=== PATIENT | female | born 1985 | race Caucasian/White ===

== ENCOUNTER 2020-05-13 10:44 | Emergency (ER) | payer BC ==
[~2020-05-13] VITALS: Ht 157.5 cm; Wt 113.6 kg
[~2020-05-13 10:44] MED LIST: ADIPEX-P37.5 MG PO; CLEOCIN HCL300 MG PO; FLOVENT HFA 410.6 GM INH; FLUTICASONE PRO16 GM NASAL; HYDROCHLOROTHIA25 MG PO; HYDROCODONE-APA1 TAB PO; IBUPROFEN800 MG PO; OXYBUTYNIN CHLOR5 MG PO; PERCOCET 10/3251 TA1 PO; PHENERGAN25 M1 PO; PREDNISONE20 MG PO; PROTONIX20 MG PO; VENTOLIN HFA18 GM INH
[2020-05-13 11:06] VITALS: Ht 157.5 cm; Wt 113.6 kg
[2020-05-13] MEDS ORDERED: STEROID (11:08)
[2020-05-13] MEDS ORDERED: ZPACK (11:08)
[2020-05-13] MEDS ORDERED: LISINOPRIL10 MG PO (11:08)
[2020-05-13 11:45] LABS: CALC OSMOLALITY 273 mosm/kg (275-300); CALCIUM 8.1 mg/dL (8.5-10.1); CARBON DIOXIDE 20.9 mmol/L (21.0-32.0); CHLORIDE - SERUM 109 mmol/L (98-107); CREATININE - SERUM 0.7 mg/dL (0.6-1.3); GLUCOSE 83 mg/dL (74-106); POTASSIUM - SERUM 4.6 mmol/L (3.5-5.1); SODIUM 138 mmol/L (136-145); UREA NITROGEN 11 mg/dL (7-18); eGFR NON AFRICAN AMERICAN > 90 mL/min (90-120)
[2020-05-13 11:50] LABS: ALKALINE PHOSPHATASE 63 U/L (30-120); ALT (SGPT) 44 U/L (10-68); BILIRUBIN - TOTAL 0.59 mg/dL (0.2-1.3); PROTEIN - SERUM 6.2 g/dL (6.4-8.2)
[2020-05-13 11:57] LABS: ALBUMIN 3.4 g/dL (3.4-5.0)
[2020-05-13 13:51] LABS: BASOPHILS 0.3 % (0-2); EOSINOPHILS 1.2 % (0-7); HEMATOCRIT 40.7 % (36.0-48.0); HEMOGLOBIN 13.2 g/dL (12-16); IMMATURE GRANULOCYTES 0.3 % (0-5); LYMPHOCYTES 27.8 % (15-50); MCH 29.8 pg (26.0-34.0); MCHC 32.4 g/dL (31.0-37.0); MCV 91.9 fL (80.0-100.0); MEAN PLATELET VOLUME 11.4 fL (7.4-10.4); MONOCYTES 9.6 % (2-11); NEUTROPHILS 60.8 % (40-80); PLATELET COUNT 182 10x3/uL (130-400); RBC 4.43 10x6/uL (4.00-5.40); RDW 13.5 % (11.5-14.5); WBC 3.5 10x3/uL (4.8-10.8)
[2020-05-13 14:04] LABS: APTT 25.2 SECONDS (22.8-39.4); INR 0.94 (0.85-1.17); PROTIME 12.6 SECONDS (11.6-15.0)
[2020-05-13 14:06] LABS: D-DIMER-QUANTITATIVE 0.28 ug/mLFEU (0.20-0.54)
[2020-05-13 14:12] LABS: CKMB 0.3 U/L (0.0-3.6); CREATINE KINASE 32 UL (21-215); PRO BNP 85 pg/mL (0-125)
[2020-05-13 14:14] LABS: TROPONIN-I < 0.017 ng/mL (0.000-0.060)
[2020-05-13] MEDS ORDERED: VENTOLIN HFA [SP8 GM INH (14:31)
[2020-05-13 16:04] VITALS: BP 134/80
== END 2020-05-13 16:02 | disposition home or self-care (01) ==
LOC: D.ER 10:44
PROVIDERS: Family Medicine
DX: U07.1 COVID-19 (principal); R51 Headache; R06.02 Shortness of breath; J45.909 Unspecified asthma, uncomplicated

== ENCOUNTER 2020-12-13 11:46 | Day surgery (SDC) | payer MEDICAID ==
[~2020-12-13] VITALS: Ht 157.5 cm; Wt 127.3 kg
--- NOTE | ~2020-12-13 | OP ---
PATIENT NAME: TNO HUTCHINSON MEDICAL RECORD: [id number] :84 LOCATION:D.OPS ADMISSION DATE: SURGEON: MIRACLE SURESH MD DATE OF OPERATION: 12/13/2020 PROCEDURE: Upper endoscopy. PREOPERATIVE DIAGNOSIS: Anemia. MEDICATIONS: Propofol per anesthesia. Upper endoscopy was performed. The endoscope was advanced through the mouth and advanced to the second part of the duodenum. The entire examined esophagus was normal. In the gastric body was mild erythema consistent with gastritis. Random gastric biopsies were taken. The entire examined duodenum was normal. Small bowel biopsies were taken. The patient tolerated the procedure well. There were no immediate complications. FINAL DIAGNOSIS: Normal esophagus, mild gastritis, normal duodenum. PLAN: Check histology results, advance diet, await biopsies and decide on any further medications. Recommend colonoscopy for anemia workup. TRANSINT:[id number] Voice Confirmation ID: [id number] DOCUMENT ID: [id number] MIRACLE SURESH MD CC: [id number] DICTATION DATE: 12/13/20 1544 CLINICAL LIAISON: 12/14/[address] [facility] 12/13/20 [id number] [place] [address]
[~2020-12-13 11:46] MED LIST changes: +LISINOPRIL10 MG PO; +STEROID; +VENTOLIN HFA [SP8 GM INH; +ZPACK
[2020-12-13 12:30] LABS: BASOPHILS 0.2 % (0-2); EOSINOPHILS 1.8 % (0-7); HEMATOCRIT 38.1 % (36.0-48.0); HEMOGLOBIN 12.8 g/dL (12-16); IMMATURE GRANULOCYTES 0.2 % (0-5); LYMPHOCYTE ABS# 0.99 10x3/uL (1.18-3.74); LYMPHOCYTES 16.2 % (15-50); MCHC 33.6 g/dL (31.0-37.0); MCV 89.2 fL (80.0-100.0); MEAN PLATELET VOLUME 10.9 fL (7.4-10.4); MONOCYTES 6.7 % (2-11); NEUTROPHIL ABS# 4.57 10x3/uL (1.56-6.13); NEUTROPHILS 74.9 % (40-80); RBC 4.27 10x6/uL (4.00-5.40); RDW 12.9 % (11.5-14.5); WBC 6.1 10x3/uL (4.8-10.8)
[2020-12-13 12:31] LABS: PLATELET COUNT 198 10x3/uL (130-400)
[2020-12-13 12:43] LABS: ALBUMIN 3.8 g/dL (3.4-5.0); ALKALINE PHOSPHATASE 67 U/L (30-120); ALT (SGPT) 47 U/L (10-68); BILIRUBIN - TOTAL 1.34 mg/dL (0.2-1.3); CALC OSMOLALITY 275 mosm/kg (275-300); CALCIUM 8.8 mg/dL (8.5-10.1); CARBON DIOXIDE 27.5 mmol/L (21.0-32.0); CHLORIDE - SERUM 105 mmol/L (98-107); CREATININE - SERUM 0.7 mg/dL (0.6-1.3); GLUCOSE 84 mg/dL (74-106); PROTEIN - SERUM 7.1 g/dL (6.4-8.2); SODIUM 139 mmol/L (136-145); UREA NITROGEN 9 mg/dL (7-18); eGFR NON AFRICAN AMERICAN > 90 mL/min (90-120)
[2020-12-13] MEDS ORDERED: NORVASC10 MG PO (13:15)
[2020-12-13] MEDS ORDERED: METOPROLOL TART25 MG PO (13:15)
[2020-12-13] MEDS ORDERED: QVAR REDIHALE10.6 G1 INH (13:16)
[2020-12-13] MEDS ORDERED: NEURONTIN 300300 MG PO (13:18)
[2020-12-13 13:25] VITALS: Ht 157.5 cm; Wt 127.3 kg
--- NOTE | 2020-12-13 15:36 | NUR ---
DC INSTRUCTIONS GIVEN TO PT. STATES UNDERSTANDING. FLUSHED PORT PER PROTOCOL BEFORE REMOVING. DC'D IV CATH FULLY INTACT. WILL DC PT SHORTLY
--- NOTE | 2020-12-13 16:30 | NUR ---
PT LEFT UNIT VIA WC AT 1422
== END 2020-12-13 16:27 | disposition home or self-care (01) ==
LOC: D.OPS 11:46
PROVIDERS: ATTEND Internal Medicine Gastroenterology
DX: D64.9 Anemia, unspecified (principal); K29.70 Gastritis, unspecified, without bleeding; R10.13 Epigastric pain; R11.2 Nausea with vomiting, unspecified; K92.1 Melena; R19.4 Change in bowel habit

== ENCOUNTER → 2021-01-30 16:08 | Outpatient (CLI) | payer BC ==
[2021-01-21 12:12] VITALS: BMI 55.3
[~2021-01-30 16:08] MED LIST changes: +METOPROLOL TART25 MG PO; +NEURONTIN 300300 MG PO; +NORVASC10 MG PO; +PERCOCET 5-3251 TAB PO; +QVAR REDIHALE10.6 G1 INH
== END | disposition home or self-care (01) ==
LOC: D.CT 16:08
PROVIDERS: ATTEND Student in an Organized Health Care Education/Training Program
DX: G89.18 Other acute postprocedural pain (principal)

== ENCOUNTER 2021-02-02 20:14 | Observation (INO) | payer BC ==
[~2021-02-02] VITALS: Ht 157.5 cm; Wt 136.4 kg
[2021-02-02 21:29] LABS: CALC OSMOLALITY 273 mosm/kg (275-300); CALCIUM 8.4 mg/dL (8.5-10.1); CARBON DIOXIDE 22.5 mmol/L (21.0-32.0); CHLORIDE - SERUM 102 mmol/L (98-107); CREATININE - SERUM 0.8 mg/dL (0.6-1.3); GLUCOSE 95 mg/dL (74-106); SODIUM 138 mmol/L (136-145); UREA NITROGEN 8 mg/dL (7-18); eGFR NON AFRICAN AMERICAN 86 mL/min (90-120)
[2021-02-02 21:32] LABS: BASOPHILS 0.2 % (0-2); EOSINOPHILS 0.5 % (0-7); HEMATOCRIT 31.6 % (36.0-48.0); HEMOGLOBIN 10.4 g/dL (12-16); IMMATURE GRANULOCYTES 0.1 % (0-5); LYMPHOCYTE ABS# 0.83 10x3/uL (1.18-3.74); MCH 28.9 pg (26.0-34.0); MCHC 32.9 g/dL (31.0-37.0); MCV 87.8 fL (80.0-100.0); MEAN PLATELET VOLUME 11.1 fL (7.4-10.4); MONOCYTES 7.3 % (2-11); NEUTROPHIL ABS# 7.61 10x3/uL (1.56-6.13); NEUTROPHILS 82.9 % (40-80); PLATELET COUNT 289 10x3/uL (130-400); RDW 12.8 % (11.5-14.5); WBC 9.2 10x3/uL (4.8-10.8)
[2021-02-02 21:35] LABS: ALBUMIN 2.7 g/dL (3.4-5.0); ALKALINE PHOSPHATASE 92 U/L (30-120); ALT (SGPT) 39 U/L (10-68); BILIRUBIN - TOTAL 0.75 mg/dL (0.2-1.3); PROTEIN - SERUM 6.9 g/dL (6.4-8.2)
[2021-02-02 22:09] LABS: BILIRUBIN NEGATIVE (NEGATIVE); KETONE NEGATIVE (NEGATIVE); NITRITE NEGATIVE (NEGATIVE); UROBILINOGEN NORMAL mg/dL (< 2)
[2021-02-02 22:10] LABS: BACTERIA FEW HPF (NONE SEEN)
[2021-02-02 23:15] VITALS: BP 116/71
--- NOTE | 2021-02-03 01:30 | NUR ---
PT TO L&D UNIT FROM ER WITH C/O LOW ABDOMINAL AND BACK PAIN THAT RADIATES AND CONSTANT, ALSO REPORTS FEVER AT HOME. PT AAOX4, VSS, TEMP 99.4. PULSE OX 95-97% ON RA. CHANGED INTO PT GOWN, ORIENTED TO ROOM/UNIT/TV, REVIEWED PLAN OF CARE THIS PM. IVF INFUSING TO RIGHT UPPER ARM PIV SITE VIA IVAC -NS AT 100ML/HR AND LEVAQUIN PER PIGGY BACK AT PRESET RATE. SITE BENIGN TO INSPECTION. SR UP X2, BED IN LOW POSITION, BED BRAKES LOCKED, HOB ELEVATED 30 DEGREES. NPO. WILL MONITOR.
[2021-02-03 01:35] VITALS: BP 112/56
[2021-02-03 01:45] VITALS: BP 112/56; Ht 157.5 cm; Wt 136.4 kg
--- NOTE | 2021-02-03 02:15 | NUR ---
ADMIT ASSESSMENT COMPLETED, NAD AT THIS TIME.
--- NOTE | 2021-02-03 03:16 | NUR ---
PT C/O SHARP, COLICKY, AND RADIATING PAIN FROM "WHERE MY KIDNEYS ARE TO MY GROIN" WHILE POINTING TO SUPRAPUBIC AREA. PRN MORPHINE GIVEN PER MD ORDERS AND REQUESTED PER MD. ASSISTED OOB TO BR, VOIDS 100ML DARK YELLOW URINE TO SPECIPAN. ASSISTED BACK TO BED, POSITIONED TO COMFORT, HOB ELEVATED 30 DEGREES, SR UP X2, BED IN LOW POSITION, BED BRAKES LOCKED. C/L IN EASY REACH. WILL MONITOR.
--- NOTE | 2021-02-03 03:58 | NUR ---
PAIN REASSESSMENT COMPLETED, PT NOW RATES PAIN 2 OUT OF10 ON NUMERIC PAIN SCALE, RESTING WITH EYES CLOSED, RESP EVEN AND UNLABORED, WILL MONITOR. C/L IN EASY REACH.
--- NOTE | 2021-02-03 07:10 | NUR ---
LULA RN AND Alejandra PRABHAKAR RN TO BEDSIDE FOR BEDSIDE SHIFT REPORT. REC'D PT AA&O X 4 LYING IN BED. PAIN ASSESSED. PT REPORTS PAIN 4/10 AND REQUEST TO GET UP TO VOID AT THIS TIME. PT OOB W/MINIMAL ASSIST. PT REPORT FEELING INCREASED PAIN UPON MOVING AND AMBULATING. PT AMBULATORY TO BR AND ABLE TO VOID APPROX 1500ML URINE IN NUNS CAP. PT STATES SHE IS UNABLE TO CONTROL HER URINE FLOW. PT AMBULATORY BACK TO BED. MINIMAL ASSISTANCE NEEDED. PT REPORTS PAIN IS GREATER NOW. PAIN MEDICATION OFFERED. PT ACCEPTS.
[2021-02-03 07:29] VITALS: BP 110/64
--- NOTE | 2021-02-03 08:00 | NUR ---
RN TO BEDSIDE FOR FLAGYL ADMIN. PT ASSISTED W/REPOSITIONING UP IN BED.
[2021-02-03 09:23] LABS: BASOPHILS 0.1 % (0-2); EOSINOPHILS 0.3 % (0-7); HEMATOCRIT 28.9 % (36.0-48.0); HEMOGLOBIN 9.2 g/dL (12-16); IMMATURE GRANULOCYTES 0.2 % (0-5); LYMPHOCYTE ABS# 0.89 10x3/uL (1.18-3.74); LYMPHOCYTES 8.9 % (15-50); MCHC 31.8 g/dL (31.0-37.0); MCV 88.1 fL (80.0-100.0); MEAN PLATELET VOLUME 11.1 fL (7.4-10.4); MONOCYTES 8.8 % (2-11); NEUTROPHILS 81.7 % (40-80); PLATELET COUNT 284 10x3/uL (130-400); RBC 3.28 10x6/uL (4.00-5.40); RDW 12.9 % (11.5-14.5)
[2021-02-03 09:38] LABS: ALBUMIN 2.3 g/dL (3.4-5.0); ALKALINE PHOSPHATASE 71 U/L (30-120); ALT (SGPT) 32 U/L (10-68); BILIRUBIN - TOTAL 0.84 mg/dL (0.2-1.3); CALC OSMOLALITY 273 mosm/kg (275-300); CALCIUM 7.9 mg/dL (8.5-10.1); CARBON DIOXIDE 23.8 mmol/L (21.0-32.0); CHLORIDE - SERUM 105 mmol/L (98-107); CREATININE - SERUM 0.7 mg/dL (0.6-1.3); GLUCOSE 103 mg/dL (74-106); POTASSIUM - SERUM 3.9 mmol/L (3.5-5.1); PROTEIN - SERUM 6.2 g/dL (6.4-8.2); SODIUM 138 mmol/L (136-145); UREA NITROGEN 6 mg/dL (7-18); eGFR NON AFRICAN AMERICAN > 90 mL/min (90-120)
--- NOTE | 2021-02-03 09:45 | NUR ---
PT RINGS CALL LIGHT. THIS RN TO BEDSIDE. PT SITTING ON SIDE OF BED REPORTING SHE WANTS UP TO PEE, BUT NEEDS ASSISTANCE W/THE IV POLE. PT ASSISTED W/GETTING TO THE BR. ABLE TO VOID 100ML. PT REPORTS LEAKING URINE ON HER PANTIES. PT ASSISTED W/CLEANING PERIAREA AND PUTTING CLEAN PANTIES AND PADS ON. PT BACK TO BED. PAIN ASSESSED. PT REPORTS PAIN IS 7-8/10 NOW. PT INFORMED OF NEXT TIME SHE CAN HAVE PAIN MEDICATION. PT VERBALZIES UNDERSTANDING.
--- NOTE | 2021-02-03 11:00 | NUR ---
ROUNDS MADE. PT LYING IN BED W/EYES CLOSED. RESP EVEN AND UNLABORED. CURRENT BOLUS NEAR COMPLETE. IV RATE CHANGED TO 125ML/HR. ICE WATER SERVED. PT DENIES FURTHER NEEDS. BED LOW, SIDE RAILS UP X 2. CALL LIGHT AT PT'S SIDE.
--- NOTE | 2021-02-03 12:45 | NUR ---
ROUNDS MADE. PT LYING IN SEMIFOWLERS AA&O. REPORTS SHE HAS JUST RETURNED FROM THE BATHROOM. PT REPORTS INCREASED PAIN 10/10 IN HER LOWER ABD AND NOW REPORTS SHE FEELS SHE IS SOB AND FEELS IT IN HER RT SIDE. PAIN MEDICATION OFFERED AND GIVEN. SEE EMAR. PT DENIES NEEDS AT THIS TIME. REPORTS SHE WAS ABLE TO EAT "A LITTLE" OF A REG LUNCH SERVED. BED LOW, SIDE RAILS UP X 2. CALL LIGHT AND PHONE AT PT'S SIDE. VITAL SIGNS OBTAINED W/THIS ROUNDING. SEE FLOWSHEET.
[2021-02-03 12:51] VITALS: BP 125/66
--- NOTE | 2021-02-03 14:30 | NUR ---
PT TO MEDICAL IMAGINING VIA W/C PER MEDICAL IMAGINING STAFF AT THIS TIME.
--- NOTE | 2021-02-03 15:15 | NUR ---
PT RETURNS TO VIA W/C PER MEDICAL IMAGING STAFF. PT REQUEST ASSISTANCE W/GETTING TO THE BR. Mark BOLANOS RN TO BEDSIDE.
--- NOTE | 2021-02-03 15:24 | NUR ---
ASSISTED PT UP TO BATHROOM. PT VOIDED 200CC CLEAR, YELLOW URINE. URINE STRAINED, NO SEDIMENT OR STONES NOTED. PT AMBULATED BACK TO BED WITHOUT DIFFICULTY. IV PLACED BACK ON IVP @ 100CC/HR.
--- NOTE | 2021-02-03 16:20 | NUR ---
REPORT OF NEGATIVE CHEST X-RAY AND LUNG SCAN CALLED TO DR FERGUSON. REPORT OF MOST RECENT TEMP OF 100.6 AND PLANS FOR RECHECK NOW. CONFIRMS ORDER TO ADMIN TYLENOL FOR TEMP 100.4 OR GREATER.
--- NOTE | 2021-02-03 16:40 | NUR ---
ROUNDS MADE. PT INFORMED THAT HER TEST RESULTS CAME BACK NEGATIVE. REPORT HAS BEEN CALLED TO DR FERGUSON. NO ADDITIONAL ORDERS AT THIS TIME. POC WILL CONTINUE. WHILE AT BEDSIDE, PT REQUEST TO GET UP TO VOID. PT OOB W/MINIMAL ASSISTANCE. AMBIATORY TO BR. VOIDS APPROX 200ML IN NUNS CAP. FRESH PERIPADS PROVIDED. PT BACK TO BED. TYLENOL 650MG PO GIVEN FOR TEMP OF 100.5. PT NOW REQUESTING PAIN MEDICATION. MORPHINE 4MG DILUTED IN 5ML NS GIVEN SIVP. SEE EMAR. PT DENIES FURTHER NEEDS AT THIS TIME. BED LOW. SIDE RAILS UP X 2. CALL LIGHT AT PT'S SIDE.
--- NOTE | 2021-02-03 17:45 | NUR ---
ROUNDS MADE. PT AWAKE IN BED. REPORTS SHE IS SWEATY AND REQUEST A COLD CLOTH. COLD WET CLOTH PROVIDED. PT DENIES FURTHER NEEDS.
[2021-02-03 19:48] VITALS: BP 106/55
--- NOTE | 2021-02-03 19:48 | NUR ---
SHIFT ASSESSMENT COMPLETED, SEE FLOWSHEET. PATIENT UP TO BATHROOM, VOIDED WITHOUT DIFFICULTY. BED SHEETS CHANGED DUE TO PT SWEATING AND PT BACK TO BED. NO OTHER NEEDS IDENTIFIED, WILL CONTINUE TO MONITOR.
--- NOTE | 2021-02-03 21:32 | NUR ---
PATIENT UP TO BATHROOM, VOIDED WITHOUT DIFFICULTY AND PT BACK TO BED. PAIN MEDICATION ADMINISTERED PER PT REQUEST AND MD ORDERS. SEE EMAR.
--- NOTE | 2021-02-03 23:47 | NUR ---
FLAGYL 500MG IVPB INFUSING VIA ALARIS PUMP PER MD ORDERS. SEE EMAR PATIENT SLEEPING WITH EVEN RESPIRATIONS, NO DISTRESS NOTED. WILL CONTINUE TO MONITOR.
--- NOTE | 2021-02-04 02:04 | NUR ---
levofloxacin 750mg infusing via alaris pump per md orders, see emar. pt continues to sleep with even respirations, no signs of distress noted. will continue to monitor
--- NOTE | 2021-02-04 03:34 | NUR ---
ANTIBIOTICS COMPLETED, NO REACTION NOTED, IV FLUIDS INFUSING PER MD ORDERS.
--- NOTE | 2021-02-04 05:42 | NUR ---
PT UP TO BATHROOM, VOIDED WITHOUT DIFFICULTY. PADS PROVIDED FOR LEAKING URINE PER PT REQUEST. PT BACK TO BED AND MORPHINE ADMINISTERED PER MD ORDERS AND PT REQUEST FOR 10/10 PAIN. SEE EMAR.
[2021-02-04 07:41] LABS: HEMATOCRIT 29.7 % (36.0-48.0); HEMOGLOBIN 9.8 g/dL (12-16); LYMPHOCYTE ABS# 0.75 10x3/uL (1.18-3.74); MCH 28.8 pg (26.0-34.0); MCV 87.4 fL (80.0-100.0); NEUTROPHIL ABS# 7.65 10x3/uL (1.56-6.13); RDW 13.1 % (11.5-14.5); WBC 9.2 10x3/uL (4.8-10.8)
[2021-02-04 07:50] VITALS: BP 102/61
--- NOTE | 2021-02-04 07:50 | NUR ---
THIS RN TO ROOM FOR SHIFT ASSESSMENT. PT SUPINE IN BED, HOB APPROX 60 DEGREES. PAIN REASSESSMENT FROM PM SHIFT MORPHINE ADMIN DONE, PT RATES PAIN APPROX 3/10 IN LOWER ABD. SHIFT ASSESSMENT COMPLETED, VSS, SEE FLOWSHEET FOR DOC. PIV INFUSING NS ORDERED TO UPPER RIGHT ARM. POC DISCUSSED. PT ENCOURAGED TO COUGH AND DEEP BREATHE. INCENTIVE SPIROMETER GIVEN ALONG WITH TEACHING. PT VERBALIZES UNDERSTANDING. EATING BREAKFAST, DENIES NAUSEA. STATES WILL GET UP TO BR SHORTLY. SRUx2, CL IN REACH.
[2021-02-04 08:25] LABS: PLATELET COUNT 159 10x3/uL (130-400)
--- NOTE | 2021-02-04 09:30 | NUR ---
THIS RN TO ROOM FOR PT CHECK. PT SITTING UP IN BED, RESTING WITH LIGHTS DIM. AAOx3. PT DENIES NEEDS, STATES SHE GOT UP TO BR TO VOID AND IS IN URINE HAT. 100ML CLEAR YELLOW URINE NOTED IN CONTAINER. FRESH ICE WATER GIVEN. PT INSTRUCTED TO CALL FOR ANY NEEDS. SRUx2, CL IN REACH.
--- NOTE | 2021-02-04 10:05 | NUR ---
DR FERGUSON ON UNIT, REPORT GIVEN THAT IV HAS INFILTRATED. STATES WILL PLACE ORDERS FOR PO ANTIBIOTICS.
--- NOTE | 2021-02-04 10:07 | NUR ---
DR FERGUSON ON UNIT, STATES SHE IS GOING TO PLACE ORDER FOR PT TO START ON LOVENOX BID. STATES SHE WILL ROUND AND SEE HER THIS AFTERNOON.
[2021-02-04 12:21] VITALS: BP 131/75
--- NOTE | 2021-02-04 12:21 | NUR ---
THIS RN TO ROOM FOR LOVENOX ADMIN. LOVENOX MED INSTRUCTIONS GIVEN WITH RATIONALE, PT AGREEABLE TO TAKING LOVENOX. ADMIN ORDERED, SEE EMAR FOR DOC. PT C/O PAIN RETURNING, RATES PAIN 7-8/10 IN LOWER ABD, REQUESTING MORPHINE. MORPHINE ADMIN ORDERED PRN, SEE EMAR FOR DOC. PT DENIES FURTHER NEEDS AT THIS TIME. SRUx2, CL IN REACH. WILL CONT TO MONITOR.
--- NOTE | 2021-02-04 13:35 | NUR ---
PT PRESSES CALL LIGHT, THIS RN TO ROOM. PT STATES SHE THINKS IV SITE MAY BE LEAKING PILLOW WAS DAMP UNDERNEATH IT. IV SITE ASSESSED, NO LEAK SEEN. INFUSING PROPERLY, NO SIGNS OF INFILTRATION OR PHLEBITIS. TOWEL PLACED UNDER PT ARM UNDER IV SITE. WILL CONT TO MONITOR. PT RATES PAIN 1/10 AFTER MORPHINE, DENIES ANY NEEDS. SRUx2, CL IN REACH. LIGHTS IN ROOM DIM FOR REST.
[2021-02-04 13:44] LABS: BASOPHILS 0.2 % (0-2); EOSINOPHILS 0.3 % (0-7); IMMATURE GRANULOCYTES 0.3 % (0-5); LYMPHOCYTES 8.1 % (15-50); MONOCYTES 7.9 % (2-11); NEUTROPHILS 83.2 % (40-80)
--- NOTE | 2021-02-04 15:50 | NUR ---
PT RESTING IN BED WITH EYES CLOSED. LIGHTS IN ROOM DIM, PT LEFT UNDISTURBED FOR REST. SRUx2, CL IN REACH.
--- NOTE | 2021-02-04 16:58 | NUR ---
SPOKE WITH DR. FERGUSON. INFORMED MD CASE MANAGEMENT CALLED AND STATED PT DID NOT MEET CRITERIA FOR CONTINUED OBSERVATION STATUS. MD STATES WILL COME ROUND ON PT.
--- NOTE | 2021-02-04 18:15 | NUR ---
THIS RN TO ROOM FOR PT CHECK. PT SITTING UP IN BED WITH LIGHTS DIM. DENIES PAIN OR ANY NEEDS AT THIS TIME. AWAITING DR FERGUSON TO ROUND.
[2021-02-04 19:10] VITALS: BP 130/73
--- NOTE | 2021-02-04 19:10 | NUR ---
RN TO PT BEDSIDE. SHIFT ASSESSMENT COMPLETED AT THIS TIME. PT C/O PAIN 04/26 IN ABD. MORPHINE 4 MG SIVP GIVEN PER ORDERS. SEE EMAR. HR-RRR, PPP, LUNGS CTAB, BOWEL SOUNDS ACTIVE X4. PIV TO RIGHT UPPER ARM PATENT WITH NO SIGNS OF ERYTHEMA OR EDEMA NOTED TO SITE. PT DENIES FURTHER NEEDS. BED LOW, WHEELS LOCKED, CALL LIGHT AND PHONE WITHIN REACH, SIDE RAILS UP X2.
--- NOTE | 2021-02-04 19:40 | NUR ---
DR FERGUSON ON UNIT. PT TO D/C TO HOME AFTER 2215 DOSE OF LOVENOX. PT WILL D/C TO HOME WITH PRESCRIPTION OF LOVENOX. RN TO PROVIDE EDUCATION TO PT ON DOSAGES AND ADMINISTRATION.
--- NOTE | 2021-02-04 21:23 | NUR ---
PT'S FRIEND TO ROOM TO WAIT AND PROVIDE A RIDE HOME WHEN PT D/C'S. PT DENIES NEEDS AT THIS TIME.
--- NOTE | 2021-02-04 22:05 | NUR ---
RN TO BEDSIDE. PT UP AND AMB IN ROOM AFTER USING THE BATHROOM. PIV TO RT UPPER ARM D/C'D WITH CATH TIP INTACT. PRESSURE DRESSING APPLIED TO SITE. PT TOLERATED WELL. INSTRUCTED PT ON SELF ADMINISTERING LOVENOX. PT ADMINISTERED TO LUQ PER SELF AND TOLERATED WELL. D/C INSTRUCTIONS EXPLAINED, SIGNED, AND WITNESSED AT THIS TIME. PT UP TO DRESS FOR D/C TO HOME.
--- NOTE | 2021-02-04 22:30 | NUR ---
PT OFF UNIT VIA W/C TO AWAITING RIDE. NO S/S OF DISTRESS NOTED. INSTRUCTED PT TO CHORE WORKER PRESCRIPTION AT [facility] [address]. UNDERSTANDING VERBALIZED.
== END 2021-02-04 22:30 | disposition home or self-care (01) ==
LOC: D.ER 20:14 → D.LD 23:56 → OBSVTIME 23:56 → D.LD 23:56
PROVIDERS: Emergency Medicine; ADMIT Student in an Organized Health Care Education/Training Program; ATTEND Student in an Organized Health Care Education/Training Program
DX: R30.0 Dysuria (principal); R50.9 Fever, unspecified; I10 Essential (primary) hypertension; K21.9 Gastro-esophageal reflux disease without esophagitis; Z90.710 Acquired absence of both cervix and uterus